=== PATIENT | male | born 1975 | race Caucasian/White ===

== ENCOUNTER 2024-05-31 12:35 | Inpatient (IN) | payer OTHER ==
[2024-05-31 13:39] VITALS: BMI 24.3
[2024-05-31] MEDS ORDERED: BENZONATATE 200 MG CAPSULE PO PRN (14:01)
[2024-05-31] MEDS ORDERED: BISMUTH SUBSALICYLATE 524 MG/30 ML PO PRN (14:01)
[2024-05-31] MEDS ORDERED: POLYETHYLENE GLYCOL (HEALTHYLAX) 3350 17 GM PACKET PO PRN (14:01)
[2024-05-31] MEDS ORDERED: ONDANSETRON *ODT* 4 MG TABLET SL PRN (14:01)
[2024-05-31] MEDS ORDERED: ACETAMINOPHEN 325 MG TABLET (FP) PO PRN (14:01)
[2024-05-31] MEDS ORDERED: NICOTINE POLACRILEX 2 MG LOZENGE BC PRN (14:01)
[2024-05-31] MEDS ORDERED: LOPERAMIDE HCL 2 MG CAPSULE PO PRN (14:01)
[2024-05-31] MEDS ORDERED: NALOXONE (NARCAN) HCL 4 MG/0.1 ML SPRAY NS PRN (14:01)
[2024-05-31] MEDS ORDERED: NALOXONE HCL 0.4 MG/ML VIAL IM PRN (14:01)
[2024-05-31] MEDS ORDERED: DICYCLOMINE HCL 10 MG CAPSULE PO PRN (14:01)
[2024-05-31] MEDS ORDERED: MAGNESIUM HYDROX 2400MG/30ML ORAL SUSPENSION 30 ML CUP PO PRN (14:01)
[2024-05-31] MEDS ORDERED: BENZOCAINE/MENTHOL (CHLORASEPTIC ) LOZENGE MM PRN (14:01)
[2024-05-31] MEDS ORDERED: MAG HYDROX/AL HYDROX/SIMETH 30 ML UNIT-DOSE CUP PO PRN (14:01)
[2024-05-31] MEDS ORDERED: guaiFENesin 600 MG TABLET.ER (FP) PO PRN (14:01)
[2024-05-31] MEDS ORDERED: IBUPROFEN 400 MG TABLET (FP) PO PRN (14:01)
[2024-05-31] MEDS ORDERED: P-EPHED 60MG/TRIPROLIDI 2.5MG TABLET PO PRN (14:01)
[2024-05-31] MEDS: METHOCARBAMOL 500 MG TABLET PO PRN (17:39)
[2024-05-31] MEDS: methaDONE HCL 10 MG TABLET (FOR DETOX USE ONLY) PO ONE (17:40)
[2024-05-31] MEDS: NICOTINE POLACRILEX 2 MG GUM BUC PRN (20:34)
[2024-05-31] MEDS: MELATONIN 5 MG TABLETS PO SCH (22:01)
[2024-05-31] MEDS: THIAMINE 100 MG TABLET PO SCH (22:01)
[2024-05-31] MEDS: cloNIDine HCL 0.1 MG TABLET PO PRN (22:01)
[2024-06-01 09:21] LABS: POTASSIUM 3.7 mmol/L (3.5-5.1)
[2024-06-01 09:25] LABS: ALBUMIN 3.6 g/dl (3.4-5.0); CALCIUM 8.7 mg/dL (8.5-10.1)
[2024-06-01 09:28] LABS: HEMATOCRIT 38.3 % (35.4-49); HEMOGLOBIN 13.4 GM/dL (11.7-16.9); MCH 29.9 pg (25.7-33.7); MCHC 35.1 g/dl (32.0-35.9); MEAN CELL VOLUME 85.1 fl (80-96); MEAN PLT VOLUME 9.5 fl (7.5-11.1); PLATELET COUNT 195 10^3/uL (134-434); RDW 13.6 % (11.9-15.9); WHITE BLOOD COUNT 4.4 K/mm3 (4.0-10.0)
[2024-06-01 09:29] LABS: CREATININE 0.8 mg/dL (0.55-1.3)
[2024-06-01 09:31] LABS: BILIRUBIN,TOTAL 0.6 mg/dL (0.2-1)
[2024-06-01] MEDS: PRENATAL VITAMINS W/ FOLIC ACID TABLET (FP) PO SCH (10:32)
[2024-06-01] MEDS: BACITRACIN 0.9 GM PACKET TP SCH (14:37)
[2024-06-01] MEDS: cloNIDine HCL 0.1 MG TABLET PO SCH (17:23)
[2024-06-01] MEDS: BICTEGRAV/EMTRICIT/TENOFOV (BIKTARVY) 50-200-25 MG TABLET PO SCH ×2 (17:54→17:58)
[2024-06-01] MEDS: methaDONE HCL 10 MG TABLET PO PRN (21:37)
[2024-06-02] MEDS: hydrOXYzine PAMOATE 25 MG CAPSULE (FP) PO ONE (02:38)
[2024-06-02] MEDS ORDERED: methaDONE HCL 40 MG DISPERSABLE TABLET PO ONE (10:00)
[2024-06-02] MEDS ORDERED: methaDONE HCL 10 MG TABLET (FOR DETOX USE ONLY) PO ONE (10:00)
[2024-06-03] MEDS ORDERED: cloNIDine HCL 0.1 MG TABLET PO PRN
[2024-06-03] MEDS: methaDONE HCL 40 MG DISPERSABLE TABLET PO ONE (09:27)
[2024-06-04] MEDS: methaDONE HCL 40 MG DISPERSABLE TABLET PO ONE (09:47)
[2024-06-04] MEDS ORDERED: methaDONE HCL 10 MG TABLET (FOR DETOX USE ONLY) PO ONE (10:00)
[2024-06-04] MEDS: IBUPROFEN 600 MG TABLET (FP) PO PRN (22:10)
[2024-06-05] MEDS ORDERED: methaDONE HCL 40 MG DISPERSABLE TABLET PO ONE (10:00)
[2024-06-06] MEDS: methaDONE 40 MG, methaDONE 10 MG PO ONE (09:28)
[2024-06-06 09:30] VITALS: BP 126/74; PULSE 65; RESP 16; TEMP 97.9
[2024-06-06] MEDS ORDERED: methaDONE HCL 40 MG DISPERSABLE TABLET PO ONE (10:00)
== END 2024-06-06 09:32 | disposition home or self-care (01) | DRG 773 ==
LOC: YASAS 12:35 → Y3N 15:13
PROVIDERS: ADMIT Neuromusculoskeletal Medicine & OMM; ATTEND Neuromusculoskeletal Medicine & OMM
PROC: HZ2ZZZZ Detoxification Services for Substance Abuse Treatment (ICD-10-PCS; principal; 2024-05-31)
DX: F11.23 Opioid dependence with withdrawal (principal); F14.20 Cocaine dependence, uncomplicated; F15.20 Other stimulant dependence, uncomplicated; F12.20 Cannabis dependence, uncomplicated; F17.210 Nicotine dependence, cigarettes, uncomplicated; F19.24 Other psychoactive substance dependence with psychoactive substance-induced mood disorder; F32.A Depression, unspecified; Z21 Asymptomatic human immunodeficiency virus [HIV] infection status; I10 Essential (primary) hypertension; C61 Malignant neoplasm of prostate; B17.2 Acute hepatitis E; R76.8 Other specified abnormal immunological findings in serum; Z86.19 Personal history of other infectious and parasitic diseases; Z79.899 Other long term (current) drug therapy; Z59.02 Unsheltered homelessness
CPT/HCPCS: 36415; 80053; 80305; 85027; 86593; 86780; 93005; 93010

== ENCOUNTER 2025-01-27 15:20 | Inpatient (IN) | payer OTHER ==
[2025-01-27] MEDS ORDERED: NICOTINE POLACRILEX 4 MG LOZENGE BC PRN (16:01)
[2025-01-27] MEDS ORDERED: guaiFENesin 600 MG TABLET.ER (FP) PO PRN (16:01)
[2025-01-27] MEDS ORDERED: POLYETHYLENE GLYCOL (HEALTHYLAX) 3350 17 GM PACKET PO PRN (16:01)
[2025-01-27] MEDS ORDERED: BENZOCAINE/MENTHOL (CHLORASEPTIC ) LOZENGE MM PRN (16:01)
[2025-01-27] MEDS ORDERED: NALOXONE HCL 0.4 MG/ML VIAL IVPUSH PRN (16:01)
[2025-01-27] MEDS ORDERED: BENZONATATE 200 MG CAPSULE PO PRN (16:01)
[2025-01-27] MEDS ORDERED: IBUPROFEN 400 MG TABLET (FP) PO PRN (16:01)
[2025-01-27] MEDS ORDERED: hydrOXYzine PAMOATE 25 MG CAPSULE (FP) PO PRN (16:01)
[2025-01-27] MEDS ORDERED: METHOCARBAMOL 500 MG TABLET PO PRN (16:01)
[2025-01-27] MEDS ORDERED: ACETAMINOPHEN 325 MG TABLET (FP) PO PRN (16:01)
[2025-01-27] MEDS ORDERED: MAGNESIUM HYDROX 2400MG/30ML ORAL SUSPENSION 30 ML CUP PO PRN (16:01)
[2025-01-27] MEDS ORDERED: NALOXONE (NARCAN) HCL 4 MG/0.1 ML SPRAY NS PRN (16:01)
[2025-01-27] MEDS ORDERED: NICOTINE POLACRILEX 4 MG GUM BUC PRN (16:01)
[2025-01-27] MEDS ORDERED: IBUPROFEN 600 MG TABLET (FP) PO PRN (16:01)
[2025-01-27] MEDS ORDERED: LOPERAMIDE HCL 2 MG CAPSULE PO PRN (16:01)
[2025-01-27] MEDS: THIAMINE 100 MG TABLET PO SCH (21:14)
[2025-01-27] MEDS: traZODone HCL 50 MG TABLET (FP) PO SCH (21:14)
[2025-01-27] MEDS: levETIRAcetam 500 MG TABLET (FP) PO SCH (21:14)
[2025-01-27] MEDS: MELATONIN 5 MG TABLETS PO SCH (21:14)
[2025-01-27] MEDS: TAMSULOSIN HCL 0.4 MG CAP PO SCH (21:15)
[2025-01-27] MEDS: QUEtiapine FUMARATE 50 MG TABLET PO SCH (21:15)
[2025-01-28] MEDS: ARIPiprazole 5 MG TABLET PO SCH (10:30)
[2025-01-28] MEDS: NICOTINE 14 MG/24 HOURS TOPICAL PATCH TD SCH (10:30)
[2025-01-28] MEDS: PRENATAL VITAMINS W/ FOLIC ACID TABLET (FP) PO SCH (10:31)
[2025-01-28] MEDS: BICTEGRAV/EMTRICIT/TENOFOV (BIKTARVY) 50-200-25 MG TABLET PO SCH (10:31)
[2025-01-30] MEDS: MAG HYDROX/AL HYDROX/SIMETH 30 ML UNIT-DOSE CUP PO PRN (09:47)
[2025-02-03 05:19] VITALS: RESP 16
[2025-02-09 06:02] VITALS: TEMP 97.7
[2025-02-10 05:21] VITALS: BP 109/73; PULSE 69
== END 2025-02-10 09:45 | disposition home or self-care (01) | DRG 772 ==
LOC: YASAS 15:20 → Y3W 15:21
PROVIDERS: ADMIT Psychiatry & Neurology Pain Medicine; ATTEND Psychiatry & Neurology Pain Medicine
PROC: HZ42ZZZ Group Counseling for Substance Abuse Treatment, Cognitive-Behavioral (ICD-10-PCS; principal; 2025-01-27)
DX: F11.20 Opioid dependence, uncomplicated (principal); F14.20 Cocaine dependence, uncomplicated; F10.20 Alcohol dependence, uncomplicated; F17.210 Nicotine dependence, cigarettes, uncomplicated; F19.24 Other psychoactive substance dependence with psychoactive substance-induced mood disorder; F43.10 Post-traumatic stress disorder, unspecified; F32.9 Major depressive disorder, single episode, unspecified; Z21 Asymptomatic human immunodeficiency virus [HIV] infection status; G47.00 Insomnia, unspecified; I10 Essential (primary) hypertension; Z86.19 Personal history of other infectious and parasitic diseases; Z79.899 Other long term (current) drug therapy; Z91.51 Personal history of suicidal behavior
CPT/HCPCS: 82962